=== PATIENT | female | born 1985 | race Caucasian/White ===

== ENCOUNTER 2022-01-18 08:17 | Outpatient (CLI) | payer BC | END 2022-01-18 08:45 | disposition home or self-care (01) | LOC: NST 08:17 | PROVIDERS: ATTEND Obstetrics & Gynecology Maternal & Fetal Medicine | DX: Z34.83 Encounter for supervision of other normal pregnancy, third trimester (principal) ==

== ENCOUNTER 2022-01-26 10:36 | Outpatient (CLI) | payer BC | END 2022-01-26 11:33 | disposition home or self-care (01) | LOC: NST 10:36 | PROVIDERS: ATTEND Obstetrics & Gynecology | DX: Z34.82 Encounter for supervision of other normal pregnancy, second trimester (principal) ==